=== PATIENT | male | born 1945 | race Caucasian/White ===

== ENCOUNTER 2016-11-06 10:31 | Day surgery (SDC) | payer MEDICARE, OTHER ==
[~2016-11-06 10:31] MED LIST: LACTATED RINGERS 1,000 ML IV SCH
[2016-11-06] MEDS ORDERED: PROPOFOL 20 ML IV ONE ×2 (11:02→11:35)
--- NOTE | 2016-11-12 14:21 | SURGPATH ---
[facility] [address] [place] [id number] Patient Name: GEREMIAS OLIVA MR#: [id number] : 1945 Gender: M Specimen #: [id number] Collected: 11/06/2016 Received: 11/09/2016 Reported: 11/10/2016 Submitting Phys: APRYL MADSEN Copy To Phys: [facility] Clinical History / Pre-Operative Diagnosis: History of polypectomies Specimen Source / Surgical Procedure Performed: #1-proximal ascending colon; #2-periappendiceal polyp; #3-descending colon polyp at 35 cm; #4-rectal polyp at 6 cm Interpretation: 1. COLON, PROXIMAL ASCENDING, POLYP, POLYPECTOMY: - TUBULAR ADENOMA 2. COLON, PERIAPPENDICEAL, POLYP, POLYPECTOMY: - TUBULAR ADENOMA 3. COLON, DESCENDING, POLYP AT 35 CM, POLYPECTOMY: - TUBULAR ADENOMA 4. RECTUM, POLYP, POLYPECTOMY: - TUBULAR ADENOMA Electronically Signed Out Ekta Pedro M.D. Gross Description: #1 The specimen is received in a formalin filled container labeled with the patient's name and "proximal ascending colon polyp". Two polypoid michael biopsies are 0.4 x 0.4 x 0.4 cm and 0.5 x 0.2 x 0.2 cm. Totally embedded in cassette #1. #2 The specimen is received in a formalin filled container labeled with the patient's name and "periappendiceal polyp". A single michael biopsy is 0.4 cm. Totally embedded in cassette #2. #3 The specimen is received in a formalin filled container labeled with the patient's name and "descending colon polyp at 35 cm". A polypoid michael biopsy is 0.4 x 0.3 x 0.3 cm. Totally embedded in cassette #3. #4 The specimen is received in a formalin filled container labeled with the patient's name and "rectal polyp". A polypoid michael biopsy is 0.4 x 0.3 x 0.2 cm. Totally embedded in cassette #4. Giorgio Fontana Microscopic Description: Part 1: A single fragment of colonic mucosa is seen with crowded glands lined by hyperchromatic nuclei. No high-grade dysplasia or carcinoma is seen. An additional fragment of benign colonic mucosa is seen. Part 2: A single fragment of colonic mucosa is seen with crowded glands lined by hyperchromatic nuclei. No high-grade dysplasia or carcinoma is seen. Part 3: A single fragment of colonic mucosa is seen with crowded glands lined by hyperchromatic nuclei. No high-grade dysplasia or carcinoma is seen. Part 4: A single fragment of colonic mucosa is seen with crowded glands lined by hyperchromatic nuclei. No high-grade dysplasia or carcinoma is seen. 1: [id number] 2: 16578 3: 01944 4: 36257 D12.0 D12.2 D12.4 D12.8
== END 2016-11-06 12:32 | disposition home or self-care (01) ==
LOC: SDC 10:31
PROVIDERS: ATTEND Internal Medicine Gastroenterology
PROC: 0DBH8ZX Excision of Cecum, Via Natural or Artificial Opening Endoscopic, Diagnostic (ICD-10-PCS; principal; 2016-11-06)
PROC: 0DBN8ZX Excision of Sigmoid Colon, Via Natural or Artificial Opening Endoscopic, Diagnostic (ICD-10-PCS; 2016-11-06)
PROC: 0DBM8ZX Excision of Descending Colon, Via Natural or Artificial Opening Endoscopic, Diagnostic (ICD-10-PCS; 2016-11-06)
PROC: 0DBK8ZX Excision of Ascending Colon, Via Natural or Artificial Opening Endoscopic, Diagnostic (ICD-10-PCS; 2016-11-06)
DX: D12.2 Benign neoplasm of ascending colon (principal); D36.7 Benign neoplasm of other specified sites; D12.4 Benign neoplasm of descending colon; D12.8 Benign neoplasm of rectum; K57.30 Diverticulosis of large intestine without perforation or abscess without bleeding; E78.5 Hyperlipidemia, unspecified; J44.9 Chronic obstructive pulmonary disease, unspecified; I12.9 Hypertensive chronic kidney disease with stage 1 through stage 4 chronic kidney disease, or unspecified chronic kidney disease; N18.9 Chronic kidney disease, unspecified; I50.9 Heart failure, unspecified; E03.9 Hypothyroidism, unspecified; E66.9 Obesity, unspecified; F17.210 Nicotine dependence, cigarettes, uncomplicated; G47.30 Sleep apnea, unspecified; Z79.899 Other long term (current) drug therapy; Z88.0 Allergy status to penicillin; Z86.010 Personal history of colon polyps